=== PATIENT | female | born 1960 | race African-American/Black ===

== ENCOUNTER 2020-12-23 13:48 | Observation (INO) | payer OTHER ==
[~2020-12-23] VITALS: Ht 177.8 cm; Wt 79.6 kg
[2020-12-23 13:56] VITALS: Ht 177.8 cm; Wt 79.6 kg
[2020-12-23 14:55] LABS: BASOPHIL % 0.9 % (0.2-1.3); PLATELET COUNT 193 x10^3mcL (179-408); RED CELL DISTRIBUTION WIDTH 13.9 % (12.3-17.7)
[2020-12-23 15:21] LABS: CARBON DIOXIDE 29.2 mmol/L (21-32); CHLORIDE SERUM 104 mmol/L (98-107); CREATININE SERUM 0.9 mg/dL (0.6-1.0); GFR1 > 60 mL/min; GLUCOSE SERUM 91 mg/dL (74-106); POTASSIUM SERUM 4.8 mmol/L (3.5-5.1); SODIUM SERUM 141 mmol/L (136-145)
[2020-12-23 15:22] LABS: ALBUMIN 4.1 g/dL (3.4-5.0); ALKALINE PHOSPHATASE 60 U/L (46-116); ALT/SGPT 22 U/L (14-59); AST/SGOT 14 U/L (15-37); BILIRUBIN TOTAL 0.5 mg/dL (0.20-1.00); CALCIUM 9.8 mg/dL (8.5-10.1); TOTAL PROTEIN, SERUM 7.4 g/dL (6.4-8.2)
[2020-12-23 17:24] LABS: FREE T4 0.75 ng/dL (0.76-1.46)
[2020-12-23] MEDS ORDERED: SIMVASTATIN80 M1 PO (18:28)
[2020-12-23] MEDS ORDERED: TOPROL XL25 MG PO (18:28)
[2020-12-23] MEDS ORDERED: ZESTRIL10 MG PO (18:28)
[2020-12-23] MEDS ORDERED: HYDROCHLOROTH12.5 M2 PO (18:29)
[2020-12-23 20:40] VITALS: BP 127/78
[2020-12-23 22:42] VITALS: BP 127/78
[2020-12-24 05:17] VITALS: BP 129/90
[2020-12-24 06:51] LABS: BASOPHIL % 0.6 % (0.2-1.3); PLATELET COUNT 173 x10^3mcL (179-408); RED CELL DISTRIBUTION WIDTH 13.6 % (12.3-17.7)
[2020-12-24 07:29] LABS: CALCIUM 9.3 mg/dL (8.5-10.1); CARBON DIOXIDE 28.2 mmol/L (21-32); CHLORIDE SERUM 105 mmol/L (98-107); CREATININE SERUM 0.9 mg/dL (0.6-1.0); GFR1 > 60 mL/min; GLUCOSE SERUM 90 mg/dL (74-106); MAGNESIUM 2.1 mg/dL (1.8-2.4); PHOSPHOROUS 3.7 mg/dL (2.5-4.9); POTASSIUM SERUM 4.2 mmol/L (3.5-5.1); SODIUM SERUM 139 mmol/L (136-145)
[2020-12-24 09:08] VITALS: BP 154/90
[2020-12-24 13:08] VITALS: BP 129/95
[2020-12-24 17:05] VITALS: BP 139/98
[2020-12-24 21:24] VITALS: BP 139/93
[2020-12-25 05:56] VITALS: BP 142/88
[2020-12-25 08:14] LABS: BASOPHIL % 0.8 % (0.2-1.3); PLATELET COUNT 185 x10^3mcL (179-408); RED CELL DISTRIBUTION WIDTH 13.9 % (12.3-17.7)
[2020-12-25 08:39] LABS: CALCIUM 9.6 mg/dL (8.5-10.1); CARBON DIOXIDE 28.1 mmol/L (21-32); CHLORIDE SERUM 105 mmol/L (98-107); CREATININE SERUM 0.9 mg/dL (0.6-1.0); GFR1 > 60 mL/min; GLUCOSE SERUM 102 mg/dL (74-106); MAGNESIUM 2.1 mg/dL (1.8-2.4); PHOSPHOROUS 2.8 mg/dL (2.5-4.9); POTASSIUM SERUM 4.6 mmol/L (3.5-5.1); SODIUM SERUM 139 mmol/L (136-145)
[2020-12-25 09:03] VITALS: BP 154/95
[2020-12-25] MEDS ORDERED: ISOSORBIDE30 M1 PO (12:10)
[2020-12-25 13:51] VITALS: BP 137/96
[2020-12-25 14:38] VITALS: BP 137/96
[2020-12-25 16:31] VITALS: BP 122/85
== END 2020-12-25 18:17 | disposition home or self-care (01) ==
LOC: ED 13:48 → DU 16:23
PROVIDERS: Emergency Medicine; ADMIT Hospitalist; ATTEND Hospitalist
DX: R00.1 Bradycardia, unspecified (principal); R42 Dizziness and giddiness; R07.89 Other chest pain; G43.909 Migraine, unspecified, not intractable, without status migrainosus; Z20.822 Contact with and (suspected) exposure to COVID-19
CPT/HCPCS: 83880; 84439; G0378; U0003